=== PATIENT | female | born 1980 | race Caucasian/White ===

== ENCOUNTER 2016-12-27 18:03 | Emergency (ER) | payer BC ==
[~2016-12-27] VITALS: Ht 170.2 cm; Wt 80.0 kg
[~2016-12-27 18:03] MED LIST: IBUPROFEN600 MG PO; NO HOME MEDS; PRENATAL 1 OR; PRENATAL OR; TEGRETOL OR; TOPICORT 0.25% EX; ZANTAC 75 PO
[2016-12-27 19:49] VITALS: BP 107/63
== END 2016-12-27 19:50 | disposition home or self-care (01) | DRG 556 ==
LOC: ED 18:03
DX: M25.562 Pain in left knee (principal); Z33.1 Pregnant state, incidental

== ENCOUNTER 2017-01-14 11:15 | Inpatient (IN) | payer BC ==
[2017-01-14] VITALS (12 sets, daily range): BP systolic 86–141; BP diastolic 46–86
[~2017-01-14] VITALS: Ht 167.6 cm; Wt 79.4 kg
[2017-01-14 11:33] LABS: URINE BILIRUBIN - DIPSTICK NEGATIVE (NEGATIVE); URINE BLOOD DIPSTICK TRACE-INTACT (NEGATIVE); URINE CLARITY CLEAR; URINE COLOR YELLOW; URINE GLUCOSE - DIPSTICK NEGATIVE (NEGATIVE); URINE KETONE NEGATIVE (NEGATIVE); URINE LEUK ESTERASE SMALL (NEGATIVE); URINE PROTEIN - DIPSTICK NEGATIVE (NEG-TRACE); URINE UROBILINOGEN - DIPSTICK 0.2 E.U./dL (0.2)
[2017-01-14 11:37] LABS: URINE NITRITE - DIPSTICK NEGATIVE (Negative)
[2017-01-14 11:41] LABS: BARBITURATES NEGATIVE (NEGATIVE); COCAINE NEGATIVE (NEGATIVE); METHADONE NEGATIVE (NEGATIVE); TETRAHYDROCANNABIONOL NEGATIVE (NEGATIVE); TRICYLIC ANTIDEPRESSANTS NEGATIVE (NEGATIVE); URINE BACTERIA RARE hpf; URINE EPITHELIAL CELLS RARE EPI/hpf (0-FEW); URINE RBC 0-2 RBC/hpf (0-5)
[2017-01-14 11:42] LABS: OXCYCODONE NEGATIVE (NEGATIVE)
[2017-01-14 13:03] LABS: HEMATOCRIT 37.4 % (37.0-47.0); HEMOGLOBIN 12.7 g/dl (12.0-16.0); IMMATURE GRANULOCYTES 0.6 % (0.0-1.0); MEAN CELL VOLUME 92.6 fL CALC (80.0-100.0); MEAN CORPUSCULAR HGB 31.4 pG CALC (26.0-32.0); NEUT# 10.78 thou/uL (2.00-7.15); RED BLOOD COUNT 4.04 mill/uL (4.20-5.60); RED CELL DISTRI WIDTH 13.6 % (11.5-15.5)
[2017-01-14 13:18] LABS: ALBUMIN 3.9 g/dL (3.2-5.0); ALKALINE PHOSPHATASE 213 u/l (38-126); ANION GAP 15 (6-22 (CALC)); BILIRUBIN, TOTAL 0.5 mg/dL (0.0-1.4); BUN 7 mg/dL (7-17); BUN/CREATININE RATIO 15 (12-20 (CALC)); CALCIUM 9.1 mg/dL (8.4-10.2); CARBON DIOXIDE 21 mmol/l (22-30); CHLORIDE 107 mmol/l (95-108); CREATININE 0.5 mg/dL (0.5-1.0); GFR > 60 ML/MIN (>=60 (CALC)); GFR FOR AFR.AMER. > 60 ML/MIN (>=60 (CALC)); GLUCOSE 72 mg/dL (65-105); POTASSIUM 4.1 mmol/l (3.5-5.1); SGOT/AST 17 u/l (14-36); SGPT/ALT 27 u/l (9-52); SODIUM 139 mmol/l (137-146)
[2017-01-15 05:00] VITALS: BP 80/45
[2017-01-15 05:51] LABS: HEMATOCRIT 31.4 % (37.0-47.0); HEMOGLOBIN 10.6 g/dl (12.0-16.0); IMMATURE GRANULOCYTES 1.2 % (0.0-1.0); MEAN CELL VOLUME 93.2 fL CALC (80.0-100.0); MEAN CORPUSCULAR HGB 31.5 pG CALC (26.0-32.0); MEAN CORPUSCULAR HGB CONC 33.8 g/L CALC (32.0-36.0); NEUT# 7.73 thou/uL (2.00-7.15); RED BLOOD COUNT 3.37 mill/uL (4.20-5.60); RED CELL DISTRI WIDTH 13.6 % (11.5-15.5)
[2017-01-15] MEDS ORDERED: IBUPROFEN600 MG PO (11:24)
[2017-01-15 11:36] VITALS: BP 120/47
== END 2017-01-15 15:00 | disposition home or self-care (01) | DRG 775 ==
LOC: OB 11:15 → OBOP 11:15 → OB 12:00
PROVIDERS: ADMIT Obstetrics & Gynecology; ATTEND Obstetrics & Gynecology
PROC: 10907ZC Drainage of Amniotic Fluid, Therapeutic from Products of Conception, Via Natural or Artificial Opening (ICD-10-PCS; principal; 2017-01-14)
PROC: 10E0XZZ Delivery of Products of Conception, External Approach (ICD-10-PCS; 2017-01-14)
DX: O99.334 Smoking (tobacco) complicating childbirth (principal); F17.210 Nicotine dependence, cigarettes, uncomplicated; O77.0 Labor and delivery complicated by meconium in amniotic fluid; Z3A.40 40 weeks gestation of pregnancy; Z37.0 Single live birth

== ENCOUNTER 2023-05-06 12:25 | Emergency (ER) | payer OTHER ==
[2023-05-06] VITALS (13 sets, daily range): BP systolic 73–139; BP diastolic 25–64
[~2023-05-06] VITALS: Ht 167.6 cm; Wt 76.8 kg
[2023-05-06 15:06] LABS: BASO% 0.2 % (0-3); IMMATURE GRANULOCYTES 0.3 % (0.0-5.0); LYMPH% 7.1 % (15-41); MEAN CORPUSCULAR HGB 27.7 pG CALC (26.0-32.0); MEAN CORPUSCULAR HGB CONC 31.9 g/dL CAL (32.0-36.0); MONO% 7.6 % (2-13); NEUT# 18.52 thou/uL (2.00-7.15); NEUT% 84.8 % (42-76); RED BLOOD COUNT 4.76 mill/uL (4.20-5.60); RED CELL DISTRI WIDTH 16.1 % (11.5-15.5)
[2023-05-06 15:13] LABS: HEMATOCRIT 41.4 % (37.0-47.0); HEMOGLOBIN 13.2 g/dl (12.0-16.0)
[2023-05-06 15:16] LABS: ALBUMIN 4.6 g/dL (3.2-5.0); ANION GAP 20 (6-22 (CALC)); BILIRUBIN, TOTAL 0.6 mg/dL (0.02-1.3); BUN 10 mg/dL (7-17); BUN/CREATININE RATIO 16 (12-20 (CALC)); CARBON DIOXIDE 20 mmol/l (22-30); CHLORIDE 102 mmol/l (95-108); CREATININE 0.6 mg/dL (0.5-1.0); GFR FOR AFR.AMER. > 60 ML/MIN (>=60 (CALC)); GFR OTHER RACES > 60 ML/MIN (>=60 (CALC)); POTASSIUM 3.5 mmol/l (3.5-5.1); SGOT/AST 25 u/l (14-36); SODIUM 139 mmol/l (137-146); TOTAL PROTEIN 8.3 g/dL (6.3-8.2)
[2023-05-06 15:29] LABS: ALKALINE PHOSPHATASE 104 u/l (38-126)
[2023-05-06] MEDS ORDERED: ROBITUSSIN AC10 ML PO (15:54)
[2023-05-06] MEDS ORDERED: ZPAK PO (15:54)
[2023-05-06] MEDS ORDERED: DIFLUCAN150 MG PO (15:54)
[2023-05-06] MEDS ORDERED: AMOX/K CLAV875 M1 PO (15:54)
== END 2023-05-06 16:19 | disposition home or self-care (01) ==
LOC: ED 12:25
PROVIDERS: Nurse Practitioner
DX: J18.9 Pneumonia, unspecified organism (principal); Z72.0 Tobacco use; Z20.822 Contact with and (suspected) exposure to COVID-19

== ENCOUNTER 2024-05-13 16:58 | Emergency (ER) | payer OTHER ==
[~2024-05-13] VITALS: Ht 167.6 cm; Wt 65.8 kg
[~2024-05-13 16:58] MED LIST changes: +AMOX/K CLAV875 M1 PO; +DIFLUCAN150 MG PO; +ROBITUSSIN AC10 ML PO; +ZPAK PO
[2024-05-13 21:04] VITALS: BP 119/57
== END 2024-05-13 21:18 | disposition home or self-care (01) ==
LOC: ED 16:58
DX: S61.212A Laceration without foreign body of right middle finger without damage to nail, initial encounter (principal); F17.200 Nicotine dependence, unspecified, uncomplicated; W27.4XXA Contact with kitchen utensil, initial encounter; Y93.G1 Activity, food preparation and clean up; Y92.000 Kitchen of unspecified non-institutional (private) residence as the place of occurrence of the external cause